=== PATIENT | female | born 1990 | race Caucasian/White ===

== ENCOUNTER 2017-02-11 07:42 | Day surgery (SDC) | payer OTHER ==
[~2017-02-11] VITALS: Ht 157.5 cm; Wt 79.8 kg
[~2017-02-11 07:42] MED LIST: ALLER-CHLOR4 MG PO; ALPRAZOLAM0.25 M2 PO; CELEXA20 MG PO; HYDROCODON-ACE1 EAC7 PO; MEGACE20 MG PO; OMEPRAZOLE20 MG PO; TYLENOL EXTRA500 MG PO; ZOFRAN4 MG PO
[2017-02-11] MEDS ORDERED: TOPAMAX25 MG PO (07:51)
[2017-02-11] MEDS ORDERED: XANAX0.5 MG PO (07:52)
[2017-02-11] MEDS ORDERED: PAXIL20 MG PO (07:53)
[2017-02-11] MEDS ORDERED: ENDOCET 5-3251 EACH PO (07:53)
[2017-02-11] MEDS ORDERED: ADVIL200 MG PO (08:42)
[2017-02-11 08:50] VITALS: BP 127/65
[2017-02-11 09:11] LABS: BASOPHIL COUNT 0.1 K/uL (0-0.1); EOSINOPHIL (%) 6.1 % (0-5); EOSINOPHIL COUNT 0.4 K/uL (0-0.3); HEMATOCRIT 42.1 % (36.0-46.0); IMMATURE GRANULOCYTE (%) 0.3 % (0.0-0.7); INSTRUMENT ABS NEUTROPHIL CT 4.1 K/uL; LYMPHOCYTE COUNT 2.1 K/uL (1.0-2.8); MCHC 34.4 G/DL (30.0-36.0); MCV 92.9 FL (83-99); MONOCYTE (%) 6.1 % (3-12); MONOCYTE COUNT 0.4 K/uL (0-0.8); NEUTROPHIL (%) 57.8 % (45-76); NEUTROPHIL COUNT 4.1 K/uL (1.8-6.4); RBC DIS.WIDTH-SD 41.3 % (39-53); RED BLOOD COUNT 4.53 M/uL (3.80-5.20); WHITE BLOOD COUNT 7.1 K/uL (4.1-10.2)
[2017-02-11 09:37] LABS: HEMATOLOGY COMMENT 1 UNABLE TO REPORT; PLATELET COUNT UNABLE TO REPORT K/uL (156-360)
[2017-02-11] MEDS ORDERED: IBUPROFEN800 MG PO (11:23)
[2017-02-11] MEDS ORDERED: OXYCODONE-APAP1 EACH PO (11:23)
[2017-02-11 13:10] VITALS: BP 101/62
[2017-02-11 13:59] VITALS: BP 110/60
== END 2017-02-11 13:55 | disposition home or self-care (01) ==
LOC: SDC 07:42
PROVIDERS: Obstetrics & Gynecology
DX: N83.8 Other noninflammatory disorders of ovary, fallopian tube and broad ligament (principal); N73.6 Female pelvic peritoneal adhesions (postinfective); N83.202 Unspecified ovarian cyst, left side; F41.9 Anxiety disorder, unspecified; Z88.0 Allergy status to penicillin; F17.200 Nicotine dependence, unspecified, uncomplicated
CPT/HCPCS: 85025; 86850; 86900; 86901; 88305; J1100; J1170; J1885; J2250; J2405; J2710; J3010

== ENCOUNTER 2017-02-12 12:27 | Emergency (ER) | payer OTHER ==
[~2017-02-12] VITALS: Ht 157.5 cm; Wt 80.0 kg
[~2017-02-12 12:27] MED LIST changes: +ADVIL200 MG PO; +ENDOCET 5-3251 EACH PO; +IBUPROFEN800 MG PO; +OXYCODONE-APAP1 EACH PO; +PAXIL20 MG PO; +TOPAMAX25 MG PO; +XANAX0.5 MG PO
[2017-02-12 13:15] LABS: EOSINOPHIL COUNT 0.2 K/uL (0-0.3); HEMATOCRIT 39.6 % (36.0-46.0); IMMATURE GRANULOCYTE (%) 0.2 % (0.0-0.7); INSTRUMENT ABS NEUTROPHIL CT 7.5 K/uL; LYMPHOCYTE COUNT 2.9 K/uL (1.0-2.8); MCHC 33.1 G/DL (30.0-36.0); MCV 96.8 FL (83-99); MEAN PLAT.VOLUME 11.7 uM^3 (9.5-12.4); MONOCYTE (%) 5.3 % (3-12); MONOCYTE COUNT 0.6 K/uL (0-0.8); NEUTROPHIL (%) 66.9 % (45-76); NEUTROPHIL COUNT 7.5 K/uL (1.8-6.4); PLATELET COUNT 229 K/uL (156-360); RBC DIS.WIDTH-CV 12.1 % (11.8-14.6); RBC DIS.WIDTH-SD 43.4 % (39-53); RED BLOOD COUNT 4.09 M/uL (3.80-5.20); WHITE BLOOD COUNT 11.2 K/uL (4.1-10.2)
[2017-02-12 13:24] LABS: CHLORIDE 110 mEq/L (99-109); POTASSIUM 3.9 mEq/L (3.7-5.4); SODIUM 141 mEq/L (136-147)
[2017-02-12 13:26] LABS: GLUCOSE 96 mg/dL (70-99)
[2017-02-12 13:27] LABS: ANION GAP 7 MEQ/L (2-14)
[2017-02-12 13:28] LABS: TOTAL BILIRUBIN 0.1 mg/dL (0.0-1.0)
[2017-02-12 13:29] LABS: ALKALINE PHOSPHATASE 70 IU/L (3-129)
[2017-02-12 13:30] LABS: GFR ESTIMATE (CALCULATED) > 59 mL/min/
[2017-02-12 13:31] LABS: UREA NITROGEN (BUN) 7 mg/dL (9-23)
[2017-02-12 13:33] LABS: LIPASE 21 U/L (1.0-51.0)
[2017-02-12 15:21] LABS: INTERNAL CONTROL VALID? YES
[2017-02-12 15:28] LABS: ADD MIUA? YES; BILIRUBIN NEGATIVE; BLOOD MODERATE; COLOR STRAW ((YELLOW)); GLUCOSE (STRIP) NEGATIVE; KETONES NEGATIVE; LEUKOCYTES NEGATIVE; NITRITE NEGATIVE; PROTEIN (STRIP) NEGATIVE; SPECIFIC GRAVITY 1.011 (1.000-1.030); UROBILINOGEN 0.2 MG/DL (0.2-1.0)
[2017-02-12 15:41] LABS: BACTERIA NONE SEEN /HPF; EPITHELIAL CELLS 1+ /HPF; MUCUS TRACE /LPF; RED BLOOD CELLS 0-5 /HPF (0-5); UCUL ADDED? NO; WHITE BLOOD CELLS 0-5 /HPF (0-5)
[2017-02-12 16:20] VITALS: BP 148/84
== END 2017-02-12 16:22 | disposition home or self-care (01) ==
LOC: EME 12:27
PROVIDERS: Emergency Medicine
DX: G89.18 Other acute postprocedural pain (principal); R10.9 Unspecified abdominal pain; G43.909 Migraine, unspecified, not intractable, without status migrainosus; Z72.0 Tobacco use; Z88.0 Allergy status to penicillin
CPT/HCPCS: 80053; 81003; 83690; 84703; 85025; 99281; 99285; J2405; J3010; J7030